=== PATIENT | female | born 1985 | race Two or more races ===

== ENCOUNTER 2023-09-27 21:50 | Emergency (ER) | payer SELFPAY ==
[~2023-09-27] VITALS: Ht 175.3 cm; Wt 68.0 kg
[2023-09-27 21:50] VITALS: BP 131/72; PULSE 140; RESP 18; O2SAT 95
== END 2023-09-28 02:59 | disposition left against medical advice (07) ==
LOC: ER 21:50 → EDBD 21:50 → ER 09-28 02:59
DX: S39.012A Strain of muscle, fascia and tendon of lower back, initial encounter (principal); S80.01XA Contusion of right knee, initial encounter; V49.9XXA Car occupant (driver) (passenger) injured in unspecified traffic accident, initial encounter; Y93.89 Activity, other specified; Y92.410 Unspecified street and highway as the place of occurrence of the external cause; Y99.8 Other external cause status